=== PATIENT | female | born 1945 | race Caucasian/White ===

== ENCOUNTER 2017-11-03 00:58 | Inpatient (IN) | payer MEDICARE, OTHER ==
[~2017-11-03] VITALS: Ht 172.7 cm; Wt 55.0 kg
--- NOTE | 2017-11-03 01:05 | Emergency Room Report ---
History of Present Illness General Chief Complaint: Multiple Trauma/Fall Source: Medical Record, EMS Present Illness HPI Is a 71-year-old female with a history dementia. She presents with a fall. No witness. She is in a retirement. She was found on the floor. Patient denies any pain. No other injury. History is limited because of her dementia. Allergies: Coded Allergies: No Known Allergies (Unverified , 11/03/17) Patient History Past Medical History: see triage record, old chart reviewed, DM, HTN Past Surgical History: other Pertinent Family History: none Social History: Denies: smoking Now: No Immunizations: other Reviewed Nursing Documentation: PMH: Agreed; PSxH: Agreed Nursing Documentation-PMH Past Medical History: No History, Except For Hx Cardiac Problems: Yes - Unspecified atrial flutter Hx Hypertension: Yes History Of Psychiatric Problem: Yes - Schizophrenia Review of Systems Eye: Denies: eye pain, blurred vision ENT: Denies: ear pain, nose congestion, throat swelling Respiratory: Denies: cough, shortness of breath Cardiovascular: Denies: chest pain, palpitations Gastrointestinal: Denies: abdominal pain, diarrhea, nausea, vomiting Musculoskeletal: Denies: back pain, joint pain Skin: Denies: rash Neurological: Denies: headache, numbness Endocrine: Denies: increased thirst, increased urine Hematologic/Lymphatic: Denies: easy bruising All Other Systems: negative except mentioned in HPI Physical Exam Vital Signs Date Time Temp Pulse Resp B/P (MAP) Pulse Ox O2 Delivery O2 Flow Rate FiO2 11/03/17 00:43 97.6 110 18 97/59 96 Room Air 97.5 vitals with tachycardia Sp02 EP Interpretation: reviewed, normal General Appearance: no apparent distress, alert, thin, Chronically Ill Head: normocephalic, atraumatic Eyes: bilateral eye PERRL, bilateral eye EOMI ENT: hearing grossly normal, normal pharynx, dry mucus membranes Neck: full range of motion, supple, no meningismus Respiratory: chest non-tender, lungs clear, normal breath sounds Cardiovascular #1: regular rate, rhythm, no murmur Gastrointestinal: normal bowel sounds, non tender, no mass, no organomegaly, no bruit, non-distended Musculoskeletal: back normal, normal range of motion, other - abrasion to right elbow Neurologic: alert Psychiatric: mood/affect normal Skin: warm/dry Medical Decision Making Diagnostic Impression: Primary Impression: Multiple injuries due to trauma Additional Impressions: Head injury, acute Qualified Codes: S09.90XA - Unspecified injury of head, initial encounter Elbow abrasion, non-infected Altered mental status Qualified Codes: R41.82 - Altered mental status, unspecified ER Course Patient presents with a fall with injury. No fracture or bleed. Because of patient dementia, will admit for observation and monitoring. I discussed the case with Dr. Santamaria who will admit. Other X-Ray Diagnostic Results Other X-Ray Diagnostic Results : X-Ray ordered: x-ray right elbow # of Views/Limited Vs Complete: 3 View Indication: Pain EP Interpretation: Yes Interpretation: no dislocation, no soft tissue swelling, no fractures Impression: No acute disease Electronically Signed by: Joe Grimes MD CT/MRI/US Diagnostic Results CT/MRI/US Diagnostic Results : Imaging Test Ordered: CT head Impression negative per radiologist Last Vital Signs Date Time Temp Pulse Resp B/P (MAP) Pulse Ox O2 Delivery O2 Flow Rate FiO2 11/03/17 00:43 97.6 110 18 97/59 96 Room Air 97.5 Status: improved Disposition: ADMITTED INPATIENT Condition: Serious JOE GRIMES M.D. Nov 03, 2017 01:05
[2017-11-03 01:24] LABS: BASOPHILS % (AUTO) 0.5 % (0.0-2.0); EOSINOPHILS % (AUTO) 0.3 % (0.0-3.0); HEMOGLOBIN 12.4 G/DL (12.0-16.0); LYMPHOCYTES % (AUTO) 14.2 % (20.0-45.0); MEAN CORPUSCULAR VOLUME 89 FL (80-99); MONOCYTES % (AUTO) 8.4 % (1.0-10.0); NEUTROPHILS % (AUTO) 76.7 % (45.0-75.0); PLATELET COUNT 221 K/UL (150-450); RED BLOOD COUNT 4.18 M/UL (4.20-5.40); RED CELL DISTRIBUTION WIDTH 11.4 % (11.6-14.8); WHITE BLOOD COUNT 6.2 K/UL (4.8-10.8)
[2017-11-03 01:30] LABS: ANION GAP 6 mmol/L (5-15); BLOOD UREA NITROGEN 17 mg/dL (7-18); CALCIUM 9.1 MG/DL (8.5-10.1); CARBON DIOXIDE 29 MMOL/L (21-32); CHLORIDE 102 MMOL/L (98-107); CREATININE 0.6 MG/DL (0.55-1.30); POTASSIUM 3.2 MMOL/L (3.5-5.1); SODIUM 137 MMOL/L (136-145)
[2017-11-03 02:26] VITALS: BP 90/54
--- NOTE | 2017-11-03 02:26 | Diagnostic Imaging Report ---
EXAM: CT Head Without Intravenous Contrast CLINICAL HISTORY: Blunt force head trauma TECHNIQUE: Axial computed tomography images of the head/brain without intravenous contrast. CTDI is 70.53 mGy and DLP is 1432 mGy-cm. One or more of the following dose reduction techniques were used: automated exposure control, adjustment of the mA and/or kV according to patient size, use of iterative reconstruction technique. Coronal reformatted images were created and reviewed. COMPARISON: No relevant prior studies available. FINDINGS: Brain: Unremarkable. No mass effect, hemorrhage, large extra-axial collection, or CT evidence of acute cortical infarction. Ventricles: Unremarkable. No midline shift or ventriculomegaly. Bones/joints: Unremarkable. No acute fracture. Soft tissues: Unremarkable. Sinuses: Unremarkable as visualized. No air-fluid level. Mastoid air cells: Unremarkable as visualized. No mastoid effusion. Auditory system: Debris in the external auditory canals. IMPRESSION: No intracranial hemorrhage or depressed calvarial fracture.
[2017-11-03 02:31] LABS: APPEARANCE,URINE CLEAR; BILIRUBIN, URINE NEGATIVE (NEGATIVE); GLUCOSE, URINE (UA) NEGATIVE (NEGATIVE); KETONES,URINE NEGATIVE (NEGATIVE); LEUKOCYTE ESTERASE ,URINE NEGATIVE (NEGATIVE); NITRITE,URINE NEGATIVE (NEGATIVE); PH,URINE 5 (4.5-8.0); PROTEIN,URINE 1+ (NEGATIVE); UROBILINOGEN,URINE NORMAL MG/DL (0.0-1.0)
[2017-11-03 02:34] LABS: COLOR,URINE YELLOW
--- NOTE | 2017-11-03 03:15 | Diagnostic Imaging Report ---
EXAM: XR Right Elbow Complete, 3 or More Views CLINICAL HISTORY: TRAUMA TECHNIQUE: Frontal, lateral and oblique views of the right elbow. COMPARISON: No relevant prior studies available. FINDINGS: Bones/joints: No displaced fracture or dislocation. No radiopaque evidence of elbow joint effusion. Soft tissues: Unremarkable. IMPRESSION: 1. No displaced fracture or dislocation. As some fractures may be occult on initial radiograph, if symptoms persist, recommend repeat evaluation in 7-10 days. 2. No radiographic evidence of elbow joint effusion.
[2017-11-03] MEDS ORDERED: FOSAMAX70 MG ORAL (03:29)
[2017-11-03] MEDS ORDERED: DOCUSATE SODIU100 MG ORAL (03:29)
[2017-11-03] MEDS ORDERED: INFUVITE ADULT10 ML IV (03:29)
[2017-11-03] MEDS ORDERED: DIGOXIN125 MCG ORAL (03:29)
[2017-11-03] MEDS ORDERED: VITAMIN B-12500 MCG ORAL (03:29)
[2017-11-03] MEDS ORDERED: NICODERM CQ1 EAC1 TD (03:29)
[2017-11-03] MEDS ORDERED: CALCIUM CARBON500 M1 PO (03:29)
[2017-11-03 04:00] VITALS: BP 116/76
[2017-11-03 08:00] VITALS: BP 105/51
[2017-11-03] MEDS ORDERED: INVEGA SUS156 MG/11 IM (08:22)
[2017-11-03] MEDS ORDERED: WELLBUTRIN XL150 MG ORAL (08:22)
[2017-11-03] MEDS: Vitamin B-12 500mcg tab ORAL SCH (09:00)
[2017-11-03] MEDS ORDERED: Digoxin 0.125mg tab ORAL SCH (09:00)
[2017-11-03] MEDS: BuPROPion XL 150mg tab ORAL SCH (09:41)
[2017-11-03] MEDS: Docusate 100mg cap ORAL SCH ×2 (09:41→17:25)
[2017-11-03] MEDS: Tums 500mg ORAL SCH (09:41)
--- NOTE | 2017-11-03 10:27 | Consultation ---
History of Present Illness General Date patient seen: Nov 03, 2017 Present Illness Allergies: Coded Allergies: No Known Allergies (Unverified , 11/03/17) Medication History Scheduled Alendronate Sodium* (Fosamax*), 70 MG ORAL ONCE A WEEK, (Reported) Bupropion Hcl* (Wellbutrin Xl*), 150 MG ORAL DAILY, (Reported) Cyanocobalamin (Vitamin B-12)* (Vitamin B-12*), 500 MCG ORAL DAILY, (Reported) Digoxin* (Digoxin*), 125 MCG ORAL DAILY, (Reported) Docusate Sodium* (Docusate Sodium*), 100 MG ORAL TWICE A DAY, (Reported) Nicotine 14MG Patch* (Nicoderm Cq 14MG*), 1 EACH TD DAILY, (Reported) Miscellaneous Medications Calcium Carbonate (Calcium Carbonate), 500 MG PO, (Reported) Mvi, Adult No.4 With Vit K (Infuvite Adult), 10 ML IV, (Reported) Paliperidone Palmitate (Invega Sustenna), 156 MG IM, (Reported) Patient History Healthcare decision maker Resuscitation status Full Code Advanced Directive on File Physical Exam Last 24 Hour Vital Signs Date Time Temp Pulse Resp B/P (MAP) Pulse Ox O2 Delivery O2 Flow Rate FiO2 11/03/17 09:42 73 11/03/17 09:00 Room Air 11/03/17 08:00 98.4 78 19 105/51 (69) 97 98.4 11/03/17 04:21 Room Air 11/03/17 04:00 97.7 96 20 116/76 (89) 98 97.7 11/03/17 03:53 97.5 97 18 90/54 96 Room Air 97.5 11/03/17 02:26 97.5 97 18 90/54 96 Room Air 97.5 11/03/17 00:43 97.6 110 18 97/59 96 Room Air 97.5 Intake and Output 11/02/17 11/03/17 19:00 07:00 Intake Total 240 ml Balance 240 ml Intake Oral 240 ml Laboratory Tests Test 11/03/17 01:08 11/03/17 02:23 White Blood Count 6.2 K/UL (4.8-10.8) Red Blood Count 4.18 M/UL (4.20-5.40) L Hemoglobin 12.4 G/DL (12.0-16.0) Hematocrit 37.0 % (37.0-47.0) Mean Corpuscular Volume 89 FL (80-99) Mean Corpuscular Hemoglobin 29.8 PG (27.0-31.0) Mean Corpuscular Hemoglobin Concent 33.6 G/DL (32.0-36.0) Red Cell Distribution Width 11.4 % (11.6-14.8) L Platelet Count 221 K/UL (150-450) Mean Platelet Volume 5.9 FL (6.5-10.1) L Neutrophils (%) (Auto) 76.7 % (45.0-75.0) H Lymphocytes (%) (Auto) 14.2 % (20.0-45.0) L Monocytes (%) (Auto) 8.4 % (1.0-10.0) Eosinophils (%) (Auto) 0.3 % (0.0-3.0) Basophils (%) (Auto) 0.5 % (0.0-2.0) Sodium Level 137 MMOL/L (136-145) Potassium Level 3.2 MMOL/L (3.5-5.1) L Chloride Level 102 MMOL/L (98-107) Carbon Dioxide Level 29 MMOL/L (21-32) Anion Gap 6 mmol/L (5-15) Blood Urea Nitrogen 17 mg/dL (7-18) Creatinine 0.6 MG/DL (0.55-1.30) Estimat Glomerular Filtration Rate > 60 mL/min (>60) Glucose Level 117 MG/DL (74-106) H Calcium Level 9.1 MG/DL (8.5-10.1) Troponin I 0.000 ng/mL (0.000-0.056) Urine Color Yellow Urine Appearance Clear Urine pH 5 (4.5-8.0) Urine Specific [place] 1.015 (1.005-1.035) Urine Protein 1+ (NEGATIVE) H Urine Glucose (UA) Negative (NEGATIVE) Urine Ketones Negative (NEGATIVE) Urine Blood 2+ (NEGATIVE) H Urine Nitrite Negative (NEGATIVE) Urine Bilirubin Negative (NEGATIVE) Urine Urobilinogen Normal MG/DL (0.0-1.0) Urine Leukocyte Esterase Negative (NEGATIVE) Urine RBC 2-4 /HPF (0 - 2) H Urine WBC 0-2 /HPF (0 - 2) Urine Squamous Epithelial Cells Few /LPF (NONE/OCC) Urine Bacteria Few /HPF (NONE) Height (Feet): 5 Height (Inches): 8.00 Weight (Pounds): 122 Medications Current Medications Medications (Trade) Dose Ordered Sig/Jono Route PRN Reason Start Time Stop Time Status Last Admin Dose Admin Alendronate Sodium (Fosamax) 70 mg ONCE A WEEK ORAL 11/05/17 06:30 12/05/17 06:29 Bupropion HCl (Wellbutrin XL) 150 mg DAILY ORAL 11/03/17 09:00 12/03/17 08:59 11/03/17 09:41 Calcium Carbonate (Tums) 500 mg DAILY ORAL 11/03/17 09:00 12/03/17 08:59 11/03/17 09:41 Cyanocobalamin (Vitamin B-12) 500 mcg DAILY ORAL 11/03/17 09:00 12/03/17 08:59 Digoxin (Lanoxin) 0.125 mg DAILY ORAL 11/03/17 09:00 12/03/17 08:59 11/03/17 09:42 Docusate Sodium (Colace) 100 mg TWICE A DAY ORAL 11/03/17 09:00 12/03/17 08:59 11/03/17 09:41 Nicotine (Nicoderm) 1 patch DAILY TDERMAL 11/03/17 09:00 12/03/17 08:59 11/03/17 09:42 Assessment/Plan Assessment/Plan (1) Dementia (2) S/p fall seen dictated. Rocco Dior Nov 03, 2017 10:27
[2017-11-03] MEDS ORDERED: Acetaminophen 500mg (ES) tab ORAL PRN (10:45)
[2017-11-03 12:00] VITALS: BP 132/63
--- NOTE | 2017-11-03 12:45 | Consultation ---
DATE OF CONSULTATION: 11/03/2017 PAIN MANAGEMENT CONSULTATION CONSULTING PHYSICIAN: Alexander Berg M.D. REFERRING PHYSICIAN: Marizol Domínguez M.D. PHYSICIAN CELL MAKER: Jasen Hunter CHIEF COMPLAINT: Status post fall. HISTORY OF PRESENT ILLNESS: This is a 71-year-old female, who is being seen on the Med/Surg floor of [facility] for initial comprehensive pain management consultation. The patient was transferred from the nursing facility, status post fall, but there is no witnesses, was found on the floor. Denies any pain at this time. However, has limited history due to dementia. She does remember falling onto her back. Denies any pain at this time. However, discussed with her slightly about getting x-rays of her cervical, lumbar, and thoracic spine and she seems to understand and again she has no signs of pain or distress at this time. Moving all her upper and lower extremities. We were consulted to help the patient to have adequate pain control while here in the hospital. PAST MEDICAL HISTORY: Diabetes mellitus, atrial flutter, hypertension, schizophrenia, and dementia. PAST SURGICAL HISTORY: Unknown. SOCIAL HISTORY: As per chart. Denies smoking tobacco, drinking alcohol, or drug abuse. ALLERGIES: No known drug allergies. MEDICATIONS: Fosamax, Wellbutrin, vitamin B12, digoxin, docusate, NicoDerm, calcium, EnteroVite, and Invega. REVIEW OF SYSTEMS: Unable to obtain due to the patient's mental status. PHYSICAL EXAMINATION: GENERAL: Alert and awake. VITAL SIGNS: Blood pressure 105/51, heart rate 73, oxygen saturation 97%, respiratory rate is 19, and temperature 98.4 degrees Fahrenheit. HEENT: PERRLA. NECK: Range of motion is full in all directions. No tenderness to paracervical muscles. No adenopathy. LUNGS: Decreased breath sounds bilaterally. HEART: Regular. ABDOMEN: Benign. BACK: Range of motion is full in flexion and extension. EXTREMITIES: Upper and lower extremity range of motion is full in all directions. No cyanosis. No clubbing. No edema. Sensory is intact. Reflexes are not obtainable. No adenopathy. ASSESSMENT AND PLAN: This is a 71-year-old female with dementia, status post fall, rule out cervical, thoracic, and lumbar compression fracture. We will order x-rays of the cervical, thoracic, and lumbar spine to rule out again any fractures in the vertebral areas and we will start the patient on Tylenol 500 mg tablet every four hours as needed for mild pain. The patient was discussed with Dr. Berg and he concurred. We will follow the patient. Thank you very much for the courtesy of this consultation. Alexander Berg M.D. SOHAM Hunter DR: ALPHONSO JOB#: [id number] CC:
--- NOTE | 2017-11-03 12:49 | Cardiology Progress Note ---
Assessment/Plan Assessment/Plan The patient is seen and examined, full consult note will be dictated. Objective Last 24 Hour Vital Signs Date Time Temp Pulse Resp B/P (MAP) Pulse Ox O2 Delivery O2 Flow Rate FiO2 11/03/17 09:42 73 11/03/17 09:00 Room Air 11/03/17 08:00 98.4 78 19 105/51 (69) 97 98.4 11/03/17 04:21 Room Air 11/03/17 04:00 97.7 96 20 116/76 (89) 98 97.7 11/03/17 03:53 97.5 97 18 90/54 96 Room Air 97.5 11/03/17 02:26 97.5 97 18 90/54 96 Room Air 97.5 11/03/17 00:43 97.6 110 18 97/59 96 Room Air 97.5 Intake and Output 11/02/17 11/03/17 19:00 07:00 Intake Total 240 ml Balance 240 ml Intake Oral 240 ml Laboratory Tests Test 11/03/17 01:08 11/03/17 02:23 White Blood Count 6.2 K/UL (4.8-10.8) Red Blood Count 4.18 M/UL (4.20-5.40) L Hemoglobin 12.4 G/DL (12.0-16.0) Hematocrit 37.0 % (37.0-47.0) Mean Corpuscular Volume 89 FL (80-99) Mean Corpuscular Hemoglobin 29.8 PG (27.0-31.0) Mean Corpuscular Hemoglobin Concent 33.6 G/DL (32.0-36.0) Red Cell Distribution Width 11.4 % (11.6-14.8) L Platelet Count 221 K/UL (150-450) Mean Platelet Volume 5.9 FL (6.5-10.1) L Neutrophils (%) (Auto) 76.7 % (45.0-75.0) H Lymphocytes (%) (Auto) 14.2 % (20.0-45.0) L Monocytes (%) (Auto) 8.4 % (1.0-10.0) Eosinophils (%) (Auto) 0.3 % (0.0-3.0) Basophils (%) (Auto) 0.5 % (0.0-2.0) Sodium Level 137 MMOL/L (136-145) Potassium Level 3.2 MMOL/L (3.5-5.1) L Chloride Level 102 MMOL/L (98-107) Carbon Dioxide Level 29 MMOL/L (21-32) Anion Gap 6 mmol/L (5-15) Blood Urea Nitrogen 17 mg/dL (7-18) Creatinine 0.6 MG/DL (0.55-1.30) Estimat Glomerular Filtration Rate > 60 mL/min (>60) Glucose Level 117 MG/DL (74-106) H Calcium Level 9.1 MG/DL (8.5-10.1) Troponin I 0.000 ng/mL (0.000-0.056) Urine Color Yellow Urine Appearance Clear Urine pH 5 (4.5-8.0) Urine Specific [place] 1.015 (1.005-1.035) Urine Protein 1+ (NEGATIVE) H Urine Glucose (UA) Negative (NEGATIVE) Urine Ketones Negative (NEGATIVE) Urine Blood 2+ (NEGATIVE) H Urine Nitrite Negative (NEGATIVE) Urine Bilirubin Negative (NEGATIVE) Urine Urobilinogen Normal MG/DL (0.0-1.0) Urine Leukocyte Esterase Negative (NEGATIVE) Urine RBC 2-4 /HPF (0 - 2) H Urine WBC 0-2 /HPF (0 - 2) Urine Squamous Epithelial Cells Few /LPF (NONE/OCC) Urine Bacteria Few /HPF (NONE) Michael Mojica MD Nov 03, 2017 12:49
[2017-11-03 16:00] VITALS: BP 133/69
--- NOTE | 2017-11-03 16:43 | Cardiology Progress Note ---
Assessment/Plan Assessment/Plan The patient is seen and examined, full consult note will be dictated. Subjective Subjective The patient is seen and examined, full consult note is dictated. Objective Last 24 Hour Vital Signs Date Time Temp Pulse Resp B/P (MAP) Pulse Ox O2 Delivery O2 Flow Rate FiO2 11/03/17 12:00 97.8 73 20 132/63 (86) 97 97.8 11/03/17 09:42 73 11/03/17 09:00 Room Air 11/03/17 08:00 98.4 78 19 105/51 (69) 97 98.4 11/03/17 04:21 Room Air 11/03/17 04:00 97.7 96 20 116/76 (89) 98 97.7 11/03/17 03:53 97.5 97 18 90/54 96 Room Air 97.5 11/03/17 02:26 97.5 97 18 90/54 96 Room Air 97.5 11/03/17 00:43 97.6 110 18 97/59 96 Room Air 97.5 Intake and Output 11/02/17 11/03/17 19:00 07:00 Intake Total 240 ml Balance 240 ml Intake Oral 240 ml Laboratory Tests Test 11/03/17 01:08 11/03/17 02:23 White Blood Count 6.2 K/UL (4.8-10.8) Red Blood Count 4.18 M/UL (4.20-5.40) L Hemoglobin 12.4 G/DL (12.0-16.0) Hematocrit 37.0 % (37.0-47.0) Mean Corpuscular Volume 89 FL (80-99) Mean Corpuscular Hemoglobin 29.8 PG (27.0-31.0) Mean Corpuscular Hemoglobin Concent 33.6 G/DL (32.0-36.0) Red Cell Distribution Width 11.4 % (11.6-14.8) L Platelet Count 221 K/UL (150-450) Mean Platelet Volume 5.9 FL (6.5-10.1) L Neutrophils (%) (Auto) 76.7 % (45.0-75.0) H Lymphocytes (%) (Auto) 14.2 % (20.0-45.0) L Monocytes (%) (Auto) 8.4 % (1.0-10.0) Eosinophils (%) (Auto) 0.3 % (0.0-3.0) Basophils (%) (Auto) 0.5 % (0.0-2.0) Sodium Level 137 MMOL/L (136-145) Potassium Level 3.2 MMOL/L (3.5-5.1) L Chloride Level 102 MMOL/L (98-107) Carbon Dioxide Level 29 MMOL/L (21-32) Anion Gap 6 mmol/L (5-15) Blood Urea Nitrogen 17 mg/dL (7-18) Creatinine 0.6 MG/DL (0.55-1.30) Estimat Glomerular Filtration Rate > 60 mL/min (>60) Glucose Level 117 MG/DL (74-106) H Calcium Level 9.1 MG/DL (8.5-10.1) Troponin I 0.000 ng/mL (0.000-0.056) Urine Color Yellow Urine Appearance Clear Urine pH 5 (4.5-8.0) Urine Specific [place] 1.015 (1.005-1.035) Urine Protein 1+ (NEGATIVE) H Urine Glucose (UA) Negative (NEGATIVE) Urine Ketones Negative (NEGATIVE) Urine Blood 2+ (NEGATIVE) H Urine Nitrite Negative (NEGATIVE) Urine Bilirubin Negative (NEGATIVE) Urine Urobilinogen Normal MG/DL (0.0-1.0) Urine Leukocyte Esterase Negative (NEGATIVE) Urine RBC 2-4 /HPF (0 - 2) H Urine WBC 0-2 /HPF (0 - 2) Urine Squamous Epithelial Cells Few /LPF (NONE/OCC) Urine Bacteria Few /HPF (NONE) Michael Mojica MD Nov 03, 2017 16:43
--- NOTE | 2017-11-03 18:45 | Consultation ---
DATE OF CONSULTATION: 11/03/2017 NOTE: INCOMPLETE DICTATION CARDIOLOGY CONSULTATION CONSULTING PHYSICIAN: Michael Mojica M.D. REFERRING PHYSICIAN: Marizol Domínguez M.D. REASON FOR CONSULTATION: Management of possible syncope. HISTORY OF PRESENT ILLNESS: This is a very unfortunate 71-year-old female, with history of dementia, presents to the hospital from nursing facility after an unwitnessed fall. There was a question of the syncope. The patient was found on the floor. At the time of arrival to the hospital, she did not have any pain or injury. Her initial vital signs was blood pressure 97/59, heart rate of 110, and she was saturating at 96%. She was admitted to Med/Surg unit for further evaluation and management. Cardiology consultation was made at the request of Dr. Domínguez for evaluation of possible syncope, hypotension, and tachycardia. PAST MEDICAL HISTORY: Includes prior history of atrial flutter, history of hypertension, and history of schizophrenia. PAST SURGICAL HISTORY: None. MEDICATIONS: List of medication in the nursing facility including Fosamax 70 mg p.o. weekly, Wellbutrin 150 mg daily, calcium carbonate 500 mg daily, vitamin B12 500 mcg p.o. daily, digoxin 125 mcg p.o. daily, Colace 100 mg twice a day, multivitamin 10 mL IV daily, nicotine 14 mg patch to be applied daily, and Invega Sustenna 156 mg IM daily. ALLERGIES: No known drug allergies. FAMILY HISTORY: No premature coronary artery disease or arrhythmogenic in the first-degree relatives. HABITS: Denies any tobacco, alcohol, or illicit drug use. She is a resident of retirement facility. The patient was a heavy smoker in the past, one pack per day for many years. REVIEW OF SYSTEMS: HEENT: Denies any headache, diplopia, or blurred vision. CONSTITUTIONAL: Denies any fever, chills, night sweats, or weight loss. CARDIOVASCULAR: Denies any chest pain, shortness of breath, PND, orthopnea, or leg swelling. PULMONARY: Denies any cough, hemoptysis, or wheezing. GASTROINTESTINAL: Denies any nausea, vomiting, diarrhea, constipation, abdominal pain, or GI bleed. GENITOURINARY: Denies any hematuria, dysuria, or incontinence. NEUROLOGY: Unwitnessed syncope, that was a fall evolved. The patient was found on the floor. There was no neurological deficits. PHYSICAL EXAMINATION: VITAL SIGNS: Her blood pressure was 97/59, pulse of 110, respirations 18, temperature 97.6 degrees Fahrenheit, and O2 saturation of 96% on room air. GENERAL: The patient is a very unfortunate 71-year-old female, chronically ill, has myoclonic jerk in the mandibular area, awake, communicating with me is limited, but she appears to be following simple commands. HEENT: Atraumatic and normocephalic. Anicteric. Pupils are equal, round, and reactive to light and accommodation. Extraocular muscles intact. NECK: JVP less than 5 cm. No carotid bruits. Carotid upstrokes 2+ bilaterally. CARDIOVASCULAR: Normal S1, S2. Regular rate and rhythm. No murmurs, gallops, or rubs. PMI is at fourth intercostal space in the midclavicular line. LUNGS: Diminished breath sounds in both lungs. ABDOMEN: Soft, nontender, and nondistended. No hepatosplenomegaly. Positive bowel sounds. EXTREMITIES: No evidence of edema, clubbing, or cyanosis. LABORATORY FINDINGS: WBC 6.2, hemoglobin of 12.4, hematocrit of 37.0, and platelet count 221,000. Sodium 137, potassium is 3.2, chloride 102, bicarbonate 29, BUN of 17, creatinine 0.6, glucose is 117, and calcium is 9.1. ASSESSMENT/PLAN: 1. Sinus tachycardia, likely due to hypotension or intravascular volume depletion, consider IV fluid administration.with NS. 2. Syncope likely due to hypovolemia although neurally-mediated syncope can be the cause. Will obtain 2D echocardiography, carotid A. US and orthostatic vitals. Further therapeutic decisions are based on the results of the above tests. 3. HTN Thank you for involving me in the care of this most pleasant patient. Michael Mojica M.D. DR: GARY JOB#: [id number] CC: VIOLA
[2017-11-03 20:00] VITALS: BP 117/69
[2017-11-04] VITALS: BP 112/61
--- NOTE | 2017-11-04 00:30 | History and Physical Report ---
DATE OF ADMISSION: 11/03/2017 HISTORY OF PRESENT ILLNESS: The patient is a poor historian. She is admitted for altered mental status at the detention. Again, the patient is a poor historian. Denies nausea, vomiting, or diarrhea. Denies fever or chills. . The patient is admitted to rule out syncope and also altered mental status . PAST MEDICAL HISTORY: Organic brain syndrome, history of anxiety, history of arrhythmia, constipation, history of osteoporosis, and psychosis. PAST SURGICAL HISTORY: Denies. MEDICATIONS: Fosamax, Wellbutrin, digoxin, Colace, and multivitamin. ALLERGIES: No known allergies. FAMILY HISTORY: Noncontributory. SOCIAL HISTORY: Denies history of smoking, alcohol, or illicit drugs. Comes from a nursing. REVIEW OF SYSTEMS: CONSTITUTIONAL: Denies fever or chills. HEENT: Denies headaches. PULMONARY: Denies shortness of breath. Denies cough. CARDIOVASCULAR: Denies chest pain. GASTROINTESTINAL: Denies nausea, vomiting, or diarrhea. EXTREMITIES: Denies any extremity pain. REAL ESTATE SUBAGENT: No change in vision or speech pattern. She is a poor historian due to organic brain syndrome. PHYSICAL EXAMINATION: VITAL SIGNS: Temperature is 98.4, pulse is 78, and blood pressure 105/61. HEENT: PERRLA. NECK: Supple. No lymphadenopathy. CHEST: Clear to auscultation. GASTROINTESTINAL: Soft, nontender, and nondistended. No organomegaly. EXTREMITIES: No edema. NEUROLOGIC: Has generalized weakness. LABORATORY DATA: Basically, WBC 6.2, hemoglobin 12.4, and platelets 221,000. Sodium 137, potassium 3.2, BUN of 17, and creatinine 0.6. Troponin is negative. ASSESSMENT AND PLAN: 1. Hypokalemia. I have asked Dr. Alcantara to see the patient for the hypokalemia. 2. Rule out syncope, status post altered mental status. I have asked Dr. Berg and Dr. Mojica to see the patient as well as Dr. Patel. The patient also has a history of psychosis and dementia as well. We need to manage her medications as well. Marizol Domínguez M.D. DR: CRISTINA JOB#: [id number] CC:
[2017-11-04 04:00] VITALS: BP 125/71
[2017-11-04 08:00] VITALS: BP_SYST 113; BP_SYST 117; BP_DIAS 66; BP_DIAS 78
--- NOTE | 2017-11-04 08:25 | General Progress Note ---
Assessment/Plan Assessment/Plan (1) Dementia (2) S/p fall Patient to be continued on Tylenol Xrays pending. D/w Dr. Berg and he concurred. Subjective Date patient seen: Nov 04, 2017 Time patient seen: 07:00 - am Allergies: Coded Allergies: No Known Allergies (Unverified , 11/03/17) Subjective REVIEW OF SYSTEMS: Unable to obtain due to the patient's mental status. SUBJECTIVE: In bed no signs of pain. Xrays pending to be taken. Objective Last 24 Hour Vital Signs Date Time Temp Pulse Resp B/P (MAP) Pulse Ox O2 Delivery O2 Flow Rate FiO2 11/04/17 04:00 97.7 79 18 125/71 (89) 97 97.7 11/04/17 00:00 97.9 81 18 112/61 (78) 96 97.9 11/03/17 21:00 Room Air 11/03/17 20:00 98.0 87 18 117/69 (85) 96 98.0 11/03/17 17:00 92 102 11/03/17 16:00 98.0 73 19 133/69 (90) 97 98.0 11/03/17 12:00 97.8 73 20 132/63 (86) 97 97.8 11/03/17 09:42 73 11/03/17 09:00 Room Air Intake and Output 11/03/17 11/04/17 19:00 07:00 Intake Total 350 ml 120 ml Balance 350 ml 120 ml Intake Oral 350 ml 120 ml # Voids 1 2 # Bowel Movements 2 Laboratory Tests 11/03/17 17:30: Troponin I 0.000 Height (Feet): 5 Height (Inches): 8.00 Weight (Pounds): 122 Objective GENERAL: Alert and awake. LUNGS: Decreased breath sounds bilaterally. HEART: S1S2 Irregular. ABDOMEN: Benign. EXTREMITIES: No cyanosis. No clubbing. No edema. NEURO: No changes. Rocco Dior Nov 04, 2017 08:25
[2017-11-04] MEDS: Vitamin B-12 500mcg tab ORAL SCH ×2 (09:00→09:40)
[2017-11-04] MEDS: Tums 500mg ORAL SCH ×2 (09:00→09:41)
[2017-11-04] MEDS: BuPROPion XL 150mg tab ORAL SCH ×2 (09:00→09:40)
[2017-11-04] MEDS: Docusate 100mg cap ORAL SCH ×3 (09:00→17:56)
--- NOTE | 2017-11-04 11:09 | Consultation ---
History of Present Illness General Chief Complaint: Multiple Trauma/Fall Present Illness HPI a 71-year-old female, with mmp who is a poor historian has waxing and waning of consciousness. depressed mood no si/hi forgetful Allergies: Coded Allergies: No Known Allergies (Unverified , 11/03/17) Medication History Scheduled Alendronate Sodium* (Fosamax*), 70 MG ORAL ONCE A WEEK, (Reported) Bupropion Hcl* (Wellbutrin Xl*), 150 MG ORAL DAILY, (Reported) Cyanocobalamin (Vitamin B-12)* (Vitamin B-12*), 500 MCG ORAL DAILY, (Reported) Digoxin* (Digoxin*), 125 MCG ORAL DAILY, (Reported) Docusate Sodium* (Docusate Sodium*), 100 MG ORAL TWICE A DAY, (Reported) Nicotine 14MG Patch* (Nicoderm Cq 14MG*), 1 EACH TD DAILY, (Reported) Miscellaneous Medications Calcium Carbonate (Calcium Carbonate), 500 MG PO, (Reported) Mvi, Adult No.4 With Vit K (Infuvite Adult), 10 ML IV, (Reported) Paliperidone Palmitate (Invega Sustenna), 156 MG IM, (Reported) Patient History Limited by: medical condition History Provided By: Medical Record, PMD Healthcare decision maker Resuscitation status Full Code Advanced Directive on File Past Medical/Surgical History Past Medical/Surgical History: (1) Head injury, acute (2) Multiple injuries due to trauma (3) Elbow abrasion, non-infected (4) Altered mental status Review of Systems Psychiatric: Reports: prior hx, anxiety, depressed feelings, emotional problems , hallucinations Physical Exam General Appearance: no apparent distress, alert, confused Last 24 Hour Vital Signs Date Time Temp Pulse Resp B/P (MAP) Pulse Ox O2 Delivery O2 Flow Rate FiO2 11/04/17 09:00 Room Air 11/04/17 08:00 95.7 80 20 113/66 (82) 98 95.7 11/04/17 04:00 97.7 79 18 125/71 (89) 97 97.7 11/04/17 00:00 97.9 81 18 112/61 (78) 96 97.9 11/03/17 21:00 Room Air 11/03/17 20:00 98.0 87 18 117/69 (85) 96 98.0 11/03/17 17:00 92 102 9/16/18 16:00 98.0 73 19 133/69 (90) 97 98.0 11/03/17 12:00 97.8 73 20 132/63 (86) 97 97.8 Intake and Output 11/03/17 11/04/17 19:00 07:00 Intake Total 350 ml 120 ml Balance 350 ml 120 ml Intake Oral 350 ml 120 ml # Voids 1 2 # Bowel Movements 2 Laboratory Tests Test 11/03/17 17:30 Troponin I 0.000 ng/mL (0.000-0.056) Height (Feet): 5 Height (Inches): 8.00 Weight (Pounds): 122 Medications Current Medications Medications (Trade) Dose Ordered Sig/Jono Route PRN Reason Start Time Stop Time Status Last Admin Dose Admin Acetaminophen (Tylenol) 500 mg Q4H PRN ORAL Mild Pain/Temp > 100.5 11/03/17 10:45 12/03/17 10:44 Alendronate Sodium (Fosamax) 70 mg ONCE A WEEK ORAL 11/05/17 06:30 12/05/17 06:29 Bupropion HCl (Wellbutrin XL) 150 mg DAILY ORAL 11/03/17 09:00 12/03/17 08:59 11/03/17 09:41 Calcium Carbonate (Tums) 500 mg DAILY ORAL 11/03/17 09:00 12/03/17 08:59 11/03/17 09:41 Cyanocobalamin (Vitamin B-12) 500 mcg DAILY ORAL 11/03/17 09:00 12/03/17 08:59 Docusate Sodium (Colace) 100 mg TWICE A DAY ORAL 11/03/17 09:00 12/03/17 08:59 11/03/17 09:41 Nicotine (Nicoderm) 1 patch DAILY TDERMAL 11/03/17 09:00 12/03/17 08:59 11/04/17 09:45 Assessment/Plan Assessment/Plan encephalopathy due to [facility] [place] mdd welbutrin seroquel Reinaldo Causey MD Nov 04, 2017 11:09
[2017-11-04 12:00] VITALS: BP 108/68
--- NOTE | 2017-11-04 15:42 | Diagnostic Imaging Report ---
Indication: Pain status post injury Technique: XRAY T Spine 2v Comparison: None Findings: Thoracic kyphosis is maintained. Vertebral body heights are maintained. No evidence of compression fracture. There is mild multilevel degenerative change with productive change, disc space narrowing and endplate sclerosis. No definite/displaced rib fracture identified in the partially visualized ribs. Imaged portions of the lungs grossly clear. Impression: Overall mild multilevel degenerative change of the thoracic spine without evidence of acute fracture.
--- NOTE | 2017-11-04 15:44 | Diagnostic Imaging Report ---
Indication: Pain status post injury Technique: XRAY C Spine 2-3v Comparison: None Findings: No abnormal cervical curvature noted on frontal view. No dens fracture noted on the open-mouth view. Cervical lordosis appears maintained. There is multilevel degenerative change of the cervical spine with disc space narrowing and productive change. This is most pronounced in the lower cervical spine. There may be minimal anterolisthesis of C4 on C5. This is likely degenerative in etiology. No definite acute fracture identified. Imaged portions of the lung apices grossly clear. Impression: Overall mild multilevel degenerative change of the cervical spine without definite evidence of acute fracture.
[2017-11-04 16:08] VITALS: BP 122/71
--- NOTE | 2017-11-04 16:43 | Diagnostic Imaging Report ---
Indication: Pain Technique: XRAY L Spine Ltd Comparison: None Findings: Bones appear demineralized. There is mild dextroscoliosis of the lumbar spine. Vertebral body heights appear preserved. No degenerative changes with some disc space narrowing, endplate sclerosis and productive change. These findings are most pronounced at L3-4, L4-L5 and L5-S1. No definite fracture identified. Sacroiliac joints and hip joints appear preserved. Bowel gas is nonspecific. No opaque foreign body identified. IMPRESSION: Scoliosis and degenerative change of the lumbar spine without definite evidence of acute fracture.
[2017-11-04 20:00] VITALS: BP 116/70
--- NOTE | 2017-11-04 20:20 | General Progress Note ---
Assessment/Plan Problem List: (1) Multiple injuries due to trauma ICD Codes: T07.XXXA - Unspecified multiple injuries, initial encounter SNOMED: 953597434, 9724141 (2) Altered mental status ICD Codes: R41.82 - Altered mental status, unspecified SNOMED: 626556799, 1370469 Qualifiers: Qualified Codes: R41.82 - Altered mental status, unspecified Status: progressing Assessment/Plan afebrile no acute events no pain ams dc planning Subjective ROS Limited/Unobtainable: Yes Allergies: Coded Allergies: No Known Allergies (Unverified , 11/03/17) Objective Last 24 Hour Vital Signs Date Time Temp Pulse Resp B/P (MAP) Pulse Ox O2 Delivery O2 Flow Rate FiO2 11/04/17 16:08 96.3 84 18 122/71 (88) 100 96.3 11/04/17 12:00 97.0 86 18 108/68 (81) 97 97.0 11/04/17 09:00 Room Air 11/04/17 08:00 95.7 80 20 113/66 (82) 98 95.7 11/04/17 04:00 97.7 79 18 125/71 (89) 97 97.7 11/04/17 00:00 97.9 81 18 112/61 (78) 96 97.9 11/03/17 21:00 Room Air Intake and Output 11/03/17 11/04/17 19:00 07:00 Intake Total 350 ml 120 ml Balance 350 ml 120 ml Intake Oral 350 ml 120 ml # Voids 1 2 # Bowel Movements 2 Height (Feet): 5 Height (Inches): 8.00 Weight (Pounds): 122 Cardiovascular: normal rate Respiratory/Chest: lungs clear Abdomen: soft Marizol Domínguez MD Nov 04, 2017 20:20
--- NOTE | 2017-11-04 22:14 | General Progress Note ---
Assessment/Plan Status: stable, progressing Assessment/Plan encephalopathy due to [facility] [place] mdd welbutrin seroquel prn Subjective Date patient seen: Nov 04, 2017 Neurologic/Psychiatric: Reports: anxiety, depressed, emotional problems Allergies: Coded Allergies: No Known Allergies (Unverified , 11/03/17) Objective Last 24 Hour Vital Signs Date Time Temp Pulse Resp B/P (MAP) Pulse Ox O2 Delivery O2 Flow Rate FiO2 11/04/17 16:08 96.3 84 18 122/71 (88) 100 96.3 11/04/17 12:00 97.0 86 18 108/68 (81) 97 97.0 11/04/17 09:00 Room Air 11/04/17 08:00 95.7 80 20 113/66 (82) 98 95.7 11/04/17 04:00 97.7 79 18 125/71 (89) 97 97.7 11/04/17 00:00 97.9 81 18 112/61 (78) 96 97.9 Intake and Output 11/03/17 11/04/17 19:00 07:00 Intake Total 350 ml 120 ml Balance 350 ml 120 ml Intake Oral 350 ml 120 ml # Voids 1 2 # Bowel Movements 2 Height (Feet): 5 Height (Inches): 8.00 Weight (Pounds): 122 General Appearance: no apparent distress, alert Neurologic: responsive, depressed affect Reinaldo Patel MD Nov 04, 2017 22:14
[2017-11-05] VITALS: BP 111/65
[2017-11-05 04:00] VITALS: BP 108/63
[2017-11-05 08:00] VITALS: BP 112/71
--- NOTE | 2017-11-05 08:17 | General Progress Note ---
Assessment/Plan Assessment/Plan (1) Dementia (2) S/p fall Patient to be continued on Tylenol Patient has no c/o pain. At this time pain management will sign off the case if patient starts having c/o pain please reconsult. D/w Dr. Berg and he concurred. Subjective Date patient seen: Nov 05, 2017 Time patient seen: 07:00 - AM Allergies: Coded Allergies: No Known Allergies (Unverified , 11/03/17) Subjective REVIEW OF SYSTEMS: Unable to obtain due to the patient's mental status. SUBJECTIVE: In bed shows no signs of pain. No c/o pain. Xrays reviewed. Objective Last 24 Hour Vital Signs Date Time Temp Pulse Resp B/P (MAP) Pulse Ox O2 Delivery O2 Flow Rate FiO2 11/05/17 04:00 83 100 11/05/17 04:00 97.9 76 18 108/63 (78) 97 97.9 11/05/17 00:00 97.7 82 18 111/65 (80) 97 97.7 11/04/17 21:00 Room Air 11/04/17 20:00 97.7 84 18 116/70 (85) 98 97.7 11/04/17 16:08 96.3 84 18 122/71 (88) 100 96.3 11/04/17 12:00 97.0 86 18 108/68 (81) 97 97.0 11/04/17 09:00 Room Air Intake and Output 11/04/17 11/05/17 19:00 07:00 Intake Total 840 ml 240 ml Balance 840 ml 240 ml Intake Oral 840 ml 240 ml # Voids 4 4 # Bowel Movements 1 Height (Feet): 5 Height (Inches): 8.00 Weight (Pounds): 122 Objective GENERAL: Alert and awake. LUNGS: Decreased breath sounds bilaterally. HEART: S1S2 Irregular. ABDOMEN: Benign. EXTREMITIES: No cyanosis. No clubbing. No edema. NEURO: No changes. Procedure: XRAY C Spine 2-3v Indication: Pain status post injury Technique: XRAY C Spine 2-3v Comparison: None Findings: No abnormal cervical curvature noted on frontal view. No dens fracture noted on the open-mouth view. Cervical lordosis appears maintained. There is multilevel degenerative change of the cervical spine with disc space narrowing and productive change. This is most pronounced in the lower cervical spine. There may be minimal anterolisthesis of C4 on C5. This is likely degenerative in etiology. No definite acute fracture identified. Imaged portions of the lung apices grossly clear. Impression: Overall mild multilevel degenerative change of the cervical spine without definite evidence of acute fracture. Procedure: XRAY L Spine Ltd Indication: Pain Technique: XRAY L Spine Ltd Comparison: None Findings: Bones appear demineralized. There is mild dextroscoliosis of the lumbar spine. Vertebral body heights appear preserved. No degenerative changes with some disc space narrowing, endplate sclerosis and productive change. These findings are most pronounced at L3-4, L4-L5 and L5-S1. No definite fracture identified. Sacroiliac joints and hip joints appear preserved. Bowel gas is nonspecific. No opaque foreign body identified. IMPRESSION: Scoliosis and degenerative change of the lumbar spine without definite evidence of acute fracture. Procedure: XRAY T Spine 2v Indication: Pain status post injury Technique: XRAY T Spine 2v Comparison: None Findings: Thoracic kyphosis is maintained. Vertebral body heights are maintained. No evidence of compression fracture. There is mild multilevel degenerative change with productive change, disc space narrowing and endplate sclerosis. No definite/ displaced rib fracture identified in the partially visualized ribs. Imaged portions of the lungs grossly clear. Impression: Overall mild multilevel degenerative change of the thoracic spine without evidence of acute fracture. Rocco Dior Nov 05, 2017 08:17
[2017-11-05] MEDS: Tums 500mg ORAL SCH (09:12)
[2017-11-05] MEDS: Docusate 100mg cap ORAL SCH ×2 (09:12→18:29)
[2017-11-05] MEDS: BuPROPion XL 150mg tab ORAL SCH (09:12)
[2017-11-05] MEDS: Vitamin B-12 500mcg tab ORAL SCH (09:12)
[2017-11-05 12:00] VITALS: BP 123/73
--- NOTE | 2017-11-05 13:19 | Cardiology Report ---
APPROVED REPORT EXAM: Two-dimensional and M-mode echocardiogram with Doppler and color Doppler. INDICATION Syncope M-Mode DIMENSIONS IVSd1.1 (0.7-1.1cm)Left Atrium (MM)3.6 (1.6-4.0cm) LVDd4.0 (3.5-5.6cm)Aortic Root2.7 (2.0-3.7cm) PWd0.8 (0.7-1.1cm)Aortic Cusp Exc.1.7 (1.5-2.0cm) LVDs1.3 (2.5-4.0cm) PWs2.0 cm Technically difficult and limited study due to cardiac position (angle). Study quality precludes accurate assessment of regional wall motion. Normal left ventricular chamber size, systolic function and wall motion. Left ventricular ejection fraction estimated to be 65 %. Borderline left ventricular hypertrophy. Anterior Echo-free space, may be due to pericardial fat or effusion. Right ventricular chamber size at upper limits of normal. Right atrial chamber size is within normal limits. Left atrial chamber size is within normal limits. Mild focal aortic valve sclerosis with adequate cusp excursion. Mildly thickened mitral valve leaflets with normal excursion. Mild mitral annulus and aortic root calcification. Pulmonic valve not visualized. Normal tricuspid valve structure. IVC dilated at 2.2 cm with physiological collapse. A color flow and spectral Doppler study was performed and revealed: Trace aortic insufficiency. No mitral regurgitation. reduced left ventricular relaxation c/w impaired relaxation diastolic dysfunction. No tricuspid regurgitation. Tricuspid systolic velocities suggests peak right ventricular systolic pressure of 16 mmHg.
--- NOTE | 2017-11-05 15:01 | General Progress Note ---
Assessment/Plan Status: stable Assessment/Plan encephalopathy due to [facility] dc welbutrin it may dec her appetite seroquel prn start lexapro Subjective Date patient seen: Nov 05, 2017 Neurologic/Psychiatric: Reports: anxiety, depressed, emotional problems Allergies: Coded Allergies: No Known Allergies (Unverified , 11/03/17) Subjective the pt is confused poor appetite Objective Last 24 Hour Vital Signs Date Time Temp Pulse Resp B/P (MAP) Pulse Ox O2 Delivery O2 Flow Rate FiO2 11/05/17 12:00 97.3 95 18 123/73 (90) 97.3 11/05/17 09:00 Room Air 11/05/17 08:00 98.0 77 18 112/71 (85) 100 98.0 11/05/17 04:00 83 100 11/05/17 04:00 97.9 76 18 108/63 (78) 97 97.9 11/05/17 00:00 97.7 82 18 111/65 (80) 97 97.7 11/04/17 21:00 Room Air 11/04/17 20:00 97.7 84 18 116/70 (85) 98 97.7 11/04/17 16:08 96.3 84 18 122/71 (88) 100 96.3 Intake and Output 11/04/17 11/05/17 19:00 07:00 Intake Total 840 ml 240 ml Balance 840 ml 240 ml Intake Oral 840 ml 240 ml # Voids 4 4 # Bowel Movements 1 Height (Feet): 5 Height (Inches): 8.00 Weight (Pounds): 122 General Appearance: no apparent distress, alert, confused Reinaldo Patel MD Nov 05, 2017 15:01
[2017-11-05 16:00] VITALS: BP 116/73
[2017-11-05 20:00] VITALS: BP 121/77
--- NOTE | 2017-11-05 21:45 | General Progress Note ---
Assessment/Plan Problem List: (1) Multiple injuries due to trauma ICD Codes: T07.XXXA - Unspecified multiple injuries, initial encounter SNOMED: [id number], 9572689 (2) Altered mental status ICD Codes: R41.82 - Altered mental status, unspecified SNOMED: 931271831, 5138586 Qualifiers: Qualified Codes: R41.82 - Altered mental status, unspecified Status: progressing Assessment/Plan vitals stable ams s/p hypotension h/o ftt reviewed chart and labs obs poor historian Subjective ROS Limited/Unobtainable: Yes Allergies: Coded Allergies: No Known Allergies (Unverified , 11/03/17) Objective Last 24 Hour Vital Signs Date Time Temp Pulse Resp B/P (MAP) Pulse Ox O2 Delivery O2 Flow Rate FiO2 11/05/17 16:00 97.0 89 116/73 (87) 97 97.0 11/05/17 16:00 89 96 11/05/17 12:00 97.3 95 18 123/73 (90) 97.3 11/05/17 09:00 Room Air 11/05/17 08:00 98.0 77 18 112/71 (85) 100 98.0 11/05/17 04:00 83 100 11/05/17 04:00 97.9 76 18 108/63 (78) 97 97.9 11/05/17 00:00 97.7 82 18 111/65 (80) 97 97.7 Intake and Output 11/04/17 11/05/17 19:00 07:00 Intake Total 840 ml 240 ml Balance 840 ml 240 ml Intake Oral 840 ml 240 ml # Voids 4 4 # Bowel Movements 1 Laboratory Tests 11/05/17 21:15: C-Reactive Protein, Quantitative 3.8H Height (Feet): 5 Height (Inches): 8.00 Weight (Pounds): 122 Cardiovascular: normal rate Respiratory/Chest: lungs clear Abdomen: soft Marizol Domínguez MD Nov 05, 2017 21:45
--- NOTE | 2017-11-05 23:55 | Cardiology Progress Note ---
Assessment/Plan Assessment/Plan 1. Sinus tachycardia, resolved, likely due to hypotension or intravascular volume depletion, continue hydration. 2. Syncope likely due to hypovolemia although neurally-mediated syncope could be excluded, echo shows normal LVEF at 65%. Negative orthostatics. 3. Hx of HTN, diet only 4. paroxysmal atrial flutter, now in SR. Subjective Subjective Sinus rhythm at 88. Objective Last 24 Hour Vital Signs Date Time Temp Pulse Resp B/P (MAP) Pulse Ox O2 Delivery O2 Flow Rate FiO2 11/05/17 21:00 Room Air 11/05/17 20:00 98.1 88 18 121/77 (92) 98 98.1 11/05/17 16:00 97.0 89 116/73 (87) 97 97.0 11/05/17 16:00 89 96 11/05/17 12:00 97.3 95 18 123/73 (90) 97.3 11/05/17 09:00 Room Air 11/05/17 08:00 98.0 77 18 112/71 (85) 100 98.0 11/05/17 04:00 83 100 11/05/17 04:00 97.9 76 18 108/63 (78) 97 97.9 11/05/17 00:00 97.7 82 18 111/65 (80) 97 97.7 Intake and Output 11/04/17 11/05/17 19:00 07:00 Intake Total 840 ml 240 ml Balance 840 ml 240 ml Intake Oral 840 ml 240 ml # Voids 4 4 # Bowel Movements 1 2D Echo: LVEF 65%, Grade I LVDD, RVSP 16 mmHg Laboratory Tests Test 11/05/17 21:15 C-Reactive Protein, Quantitative 3.8 mg/dL (0.00-0.90) H Microbiology Date/Time Source Procedure Growth Status 11/03/17 03:01 Nasal Nares MRSA Culture - Final NO METHICILLIN RESISTANT STAPH AUREUS... Complete 11/03/17 03:01 Rectum VRE Culture - Final NO VANCOMYCIN RESISTANT ENTEROCOCCUS ... Complete 11/03/17 03:01 Rectum - Final NO CARBAPENEM-RESISTANT ENTEROBACTERI... Complete Objective HEENT: Atraumatic and normocephalic. Anicteric. Pupils are equal, round, and reactive to light and accommodation. Extraocular muscles intact. NECK: JVP less than 5 cm. No carotid bruits. Carotid upstrokes 2+ bilaterally. CARDIOVASCULAR: Normal S1, S2. Regular rate and rhythm. No murmurs, gallops, or rubs. PMI is at fourth intercostal space in the midclavicular line. LUNGS: Diminished breath sounds in both lungs. ABDOMEN: Soft, nontender, and nondistended. No hepatosplenomegaly. Positive bowel sounds. EXTREMITIES: No evidence of edema, clubbing, or cyanosis. Michael Mojica MD Nov 05, 2017 23:55
[2017-11-06] VITALS: BP 125/69
[2017-11-06 04:00] VITALS: BP 112/69
[2017-11-06 06:38] LABS: BASOPHILS % (AUTO) 0.4 % (0.0-2.0); EOSINOPHILS % (AUTO) 1.1 % (0.0-3.0); HEMATOCRIT 34.9 % (37.0-47.0); HEMOGLOBIN 11.9 G/DL (12.0-16.0); LYMPHOCYTES % (AUTO) 20.7 % (20.0-45.0); MEAN CORPUSCULAR VOLUME 89 FL (80-99); MONOCYTES % (AUTO) 8.2 % (1.0-10.0); NEUTROPHILS % (AUTO) 69.5 % (45.0-75.0); PLATELET COUNT 205 K/UL (150-450); RED BLOOD COUNT 3.92 M/UL (4.20-5.40); RED CELL DISTRIBUTION WIDTH 11.4 % (11.6-14.8); WHITE BLOOD COUNT 4.2 K/UL (4.8-10.8)
[2017-11-06 07:12] LABS: ALANINE AMINOTRANSFERASE 25 U/L (12-78); ALBUMIN 2.7 G/DL (3.4-5.0); ALBUMIN/GLOBULIN RATIO 0.7 (1.0-2.7); ALKALINE PHOSPHATASE 161 U/L (46-116); ANION GAP 11 mmol/L (5-15); ASPARTATE AMINO TRANSFERASE 13 U/L (15-37); BILIRUBIN,TOTAL 0.6 MG/DL (0.2-1.0); BLOOD UREA NITROGEN 12 mg/dL (7-18); CARBON DIOXIDE 26 MMOL/L (21-32); CHLORIDE 102 MMOL/L (98-107); CHOLESTEROL 122 MG/DL (< 200); CREATININE 0.6 MG/DL (0.55-1.30); HDL CHOLESTEROL 42 MG/DL (40-60); PHOSPHORUS 2.8 MG/DL (2.5-4.9); POTASSIUM 3.4 MMOL/L (3.5-5.1); SODIUM 139 MMOL/L (136-145); TRIGLYCERIDES 86 MG/DL (30-150)
[2017-11-06 08:00] VITALS: BP 105/64
[2017-11-06] MEDS: Docusate 100mg cap ORAL SCH (08:03)
[2017-11-06] MEDS: Tums 500mg ORAL SCH (08:03)
[2017-11-06] MEDS: Vitamin B-12 500mcg tab ORAL SCH (08:03)
--- NOTE | 2017-11-06 09:01 | Consultation ---
Consult Note Consult Note HPI Is a 71-year-old female with a history dementia. She presents with a fall. No witness. She is in a fdc. She was found on the floor. Patient denies any pain. No other injury. History is limited because of her dementia. Allergies: Coded Allergies: No Known Allergies (Unverified , 11/03/17) Past Medical History: see triage record, old chart reviewed, DM, HTN Past Medical History: No History, Except For Hx Cardiac Problems: Yes - Unspecified atrial flutter Hx Hypertension: Yes History Of Psychiatric Problem: Yes - Schizophrenia examined data reviewed Assessment/Plan Dehydratio Hypokalemia HTN syncope PAF K supplement PO DC planning Remington Alcantara MD Nov 06, 2017 09:01
[2017-11-06 12:00] VITALS: BP 115/65
--- NOTE | 2017-11-06 21:50 | General Progress Note ---
Assessment/Plan Assessment/Plan encephalopathy due to [facility] [place] mdd dc welbutrin it may dec her appetite seroquel prn start lexapro Subjective Neurologic/Psychiatric: Reports: anxiety, depressed, emotional problems Allergies: Coded Allergies: No Known Allergies (Unverified , 11/03/17) Subjective the pt is confused poor appetite Objective Last 24 Hour Vital Signs Date Time Temp Pulse Resp B/P (MAP) Pulse Ox O2 Delivery O2 Flow Rate FiO2 11/06/17 12:00 97.5 87 20 115/65 (82) 95 97.5 11/06/17 09:00 Room Air 11/06/17 08:00 97.9 92 21 105/64 (78) 96 97.9 11/06/17 05:42 88 106 100 11/06/17 04:00 98.6 77 18 112/69 (83) 97 98.6 11/06/17 00:00 97.9 75 18 125/69 (87) 97 97.9 Intake and Output 11/05/17 11/06/17 19:00 07:00 Intake Total 195 ml 480 ml Balance 195 ml 480 ml Intake Oral 195 ml 480 ml # Voids 1 1 # Bowel Movements 1 Laboratory Tests 11/06/17 05:05: White Blood Count 4.2L, Red Blood Count 3.92L, Hemoglobin 11.9L, Hematocrit 34.9L, Mean Corpuscular Volume 89, Mean Corpuscular Hemoglobin 30.4, Mean Corpuscular Hemoglobin Concent 34.2, Red Cell Distribution Width 11.4L, Platelet Count 205, Mean Platelet Volume 5.9L, Neutrophils (%) (Auto) 69.5, Lymphocytes (%) (Auto) 20.7, Monocytes (%) (Auto) 8.2, Eosinophils (%) (Auto) 1.1, Basophils (%) (Auto) 0.4, Sodium Level 139, Potassium Level 3.4L, Chloride Level 102, Carbon Dioxide Level 26, Anion Gap 11, Blood Urea Nitrogen 12, Creatinine 0.6, Estimat Glomerular Filtration Rate > 60, Glucose Level 74, Hemoglobin A1c 5.4, Uric Acid 4.5, Calcium Level 9.0, Phosphorus Level 2.8, Magnesium Level 1.7L, Total Bilirubin 0.6, Aspartate Amino Transf (AST/SGOT) 13L , Alanine Aminotransferase (ALT/SGPT) 25, Alkaline Phosphatase 161H, Total Protein 6.4, Albumin 2.7L, Globulin 3.7, Albumin/Globulin Ratio 0.7L, Triglycerides Level 86, Cholesterol Level 122, LDL Cholesterol 62, HDL Cholesterol 42, Cholesterol/HDL Ratio 2.9L, Vitamin B12 Level 1190H, Folate 49.2 , Thyroid Stimulating Hormone (TSH) 0.765 Height (Feet): 5 Height (Inches): 8.00 Weight (Pounds): 121 Reinaldo Patel MD Nov 06, 2017 21:50
--- NOTE | 2017-11-07 12:09 | Discharge Summary ---
Discharge Summary Discharge Summary _ DATE OF ADMISSION: 11/03/2017 DATE OF DISCHARGE: 11/06/2017 CONSULTANTS: Dr. Reinaldo Berg BRIEF HOSPITAL COURSE: Patient is a 71-year-old female, who came from [facility], presented to ED via EMS due to an unwitnessed fall. Patient was found on the floor. She denied pain or injury. History was limited due to patient's dementia. She has medical history significant for hypertension, diabetes mellitus, a. flutter, and schizophrenia. Evaluation at ED, heart rate was 110, blood pressure 97/59. Blood work was unremarkable except for low potassium level of 2.2. Troponin was negative. There was no leukocytosis. Urinalysis negative. Head CT was negative for hemorrhage or fractures. X-ray of the right elbow showed no dislocation, no displaced fracture, no radiographic evidence of elbow joint effusion. She was admitted for evaluation of altered mental status with fall, rule out syncope, and hypokalemia. She was seen by drag down. Cardiac troponins were monitored. Patient had sinus tachycardia, likely due to hypotension and intravascular volume depletion. She was given IV fluids. She had an echocardiogram done that showed normal left ejection fraction 65%. Orthostatic vitals were negative. She was given potassium supplements. She had waxing and waning of consciousness. She had depressed mood and was forgetful. She was seen by psychiatrist and was diagnosed with encephalopathy and major depressive disorder. She was given Wellbutrin. She was placed on Seroquel prn. She denied pain. X-rays of cervical, thoracic and lumbar spine showed multilevel degenerative changes without evidence of acute fractures. She was sinus rhythm on the monitor. Blood pressure was stable. Troponin was negative. There was no further loss of consciousness. She was cleared for discharge back to [facility]. FINAL DIAGNOSES: Syncope possibly secondary to hypovolemia Altered mental status/encephalopathy due to general medical condition Status post fall Major depressive disorder Dehydration Hypokalemia Paroxysmal atrial fibrillation Sinus tachycardia due to hypotension and intravascular volume depletion DISPOSITION: Patient was discharged to [facility]. DISCHARGE MEDICATIONS: Refer to Discharge Medication List. I have been assigned to dictate discharge summary on this account, and I was not involved in the patient's management. Denice Galeana NP Nov 07, 2017 12:09
--- NOTE | 2017-11-07 19:01 | Cardiology Report ---
APPROVED REPORT EKG Measurement Heart [id number] Normal sinus rhythm Normal ECG
== END 2017-11-06 13:50 | DRG 640 ==
LOC: EDBD 00:58 → EMR 01:08 → 4E 03:12 → EDBEDREQ 03:20 → 4E 03:54
DX: E86.0 Dehydration (principal); G93.40 Encephalopathy, unspecified; I48.92 Unspecified atrial flutter; E86.1 Hypovolemia; R55 Syncope and collapse; I95.9 Hypotension, unspecified; R41.82 Altered mental status, unspecified; E87.6 Hypokalemia; F03.90 Unspecified dementia, unspecified severity, without behavioral disturbance, psychotic disturbance, mood disturbance, and anxiety; I10 Essential (primary) hypertension; E11.9 Type 2 diabetes mellitus without complications; F20.9 Schizophrenia, unspecified; F32.9 Major depressive disorder, single episode, unspecified; I48.0 Paroxysmal atrial fibrillation; R00.0 Tachycardia, unspecified; S09.90XA Unspecified injury of head, initial encounter; W19.XXXA Unspecified fall, initial encounter; S50.312A Abrasion of left elbow, initial encounter; Y92.129 Unspecified place in nursing home as the place of occurrence of the external cause; M81.0 Age-related osteoporosis without current pathological fracture
CPT/HCPCS: 36415; 70450; 72020; 72040; 72070; 80048; 80053; 80061; 81001; 82607; 82746; 83036; 83735; 84100; 84443; 84484; 84550; 85025; 86140; 87081; 93005; 93306; 96360; 99285; J8499